=== PATIENT | male | born 1960 | race Two or more races ===

== ENCOUNTER 2020-06-22 11:19 | Emergency (ER) | payer BC, OTHER ==
[~2020-06-22] VITALS: Ht 165.1 cm; Wt 87.7 kg
[2020-06-22 11:28] VITALS: BP 149/92
--- NOTE | 2020-06-22 11:46 | NUR ---
BODY ACHES AND NOT FEELING WELL SINCE JUN 13. PROVIDER AT BEDSIDE OBTAINING SPECIMENT FOR COVID TEST
[2020-06-22 12:16] LABS: BASOPHILS % (AUTO) 1 % (0-1); EOSINOPHILS % (AUTO) 1 % (1-7); LYMPHOCYTES % (AUTO) 30 % (22-44); MEAN CORPUSCULAR HEMOGLOBIN 28.2 pg (27.5-34.5); MEAN CORPUSCULAR HGB CONC 34.3 g/dL (33.2-36.2); MEAN PLATELET VOLUME 8.9 fL (7.4-10.4); MONOCYTES % (AUTO) 13 % (2-9); NEUTROPHILS % (AUTO) 57 % (42-75); PLATELET COUNT 129 x10^3/uL (130-400); RED BLOOD COUNT 6.02 x10^6/uL (4.38-5.82); RED CELL DISTRIBUTION WIDTH 13.4 % (9.4-14.8)
[2020-06-22 12:28] LABS: ANION GAP 7 mmol/L (5-15); CALCIUM 8.4 mg/dL (8.5-10.1); CHLORIDE 100 mmol/L (98-107); CREATININE 1.08 mg/dL (0.7-1.3)
[2020-06-22 12:29] LABS: ALBUMIN 3.5 g/dL (3.4-5.0); MD NO
[2020-06-22 12:32] LABS: TROPONIN I < 0.015 ng/mL (0.000-0.045)
== END 2020-06-22 13:28 | disposition home or self-care (01) ==
LOC: ED 13:20
DX: U07.1 COVID-19 (principal); J06.9 Acute upper respiratory infection, unspecified; R94.31 Abnormal electrocardiogram [ECG] [EKG]; I10 Essential (primary) hypertension
CPT/HCPCS: 71045; 80048; 82040; 83880; 84484; 85025; 87635; 93005; 99285